=== PATIENT | male | born 1965 | race Caucasian/White ===

== ENCOUNTER 2021-10-16 13:37 | Outpatient (CLI) | payer OTHER, SELFPAY ==
[2021-10-16 14:07] VITALS: BP 118/66; PULSE 66; RESP 18; TEMP 36.9; O2SAT 97; BMI 24.7
[2021-10-16 14:38] VITALS: BP 95/56; PULSE 63; RESP 17; TEMP 36.9; O2SAT 95
[2021-10-16 15:32] VITALS: BP 109/63; PULSE 60; RESP 17; TEMP 36.9; O2SAT 93
== END 2021-10-16 13:38 | disposition home or self-care (01) ==
LOC: OPS 13:39
PROVIDERS: PCP Nurse Practitioner; Visit Provider Family Medicine
DX: U07.1 COVID-19 (principal)
CPT/HCPCS: 96365

== ENCOUNTER → 2024-10-02 14:32 | Outpatient (BNVA) | payer OTHER, SELFPAY | PROVIDERS: PCP Nurse Practitioner; Visit Provider Nurse Practitioner | DX: M25.461 Effusion, right knee (principal) | CPT/HCPCS: 73562; 80053; 84550; 85025 ==

== ENCOUNTER → 2024-11-07 14:22 | Outpatient (BNVA) | payer OTHER, SELFPAY | PROVIDERS: PCP Nurse Practitioner; Referring Provider Nurse Practitioner; Visit Provider Specialist | DX: M25.461 Effusion, right knee (principal); M70.41 Prepatellar bursitis, right knee; M17.11 Unilateral primary osteoarthritis, right knee | CPT/HCPCS: 73560; 73565 ==